=== PATIENT | male | born 1945 | race Caucasian/White ===

== ENCOUNTER 2021-12-28 21:47 | Inpatient (IN) | payer MEDICARE, OTHER ==
[~2021-12-28] VITALS: Ht 188 cm; Wt 108.4 kg
[~2021-12-28 21:47] MED LIST: ACETYL L-CARNI500 MG PO; AMBIEN10 MG PO; AMBIEN5 MG PO; ATENOLOL25 MG PO; B COMPLEX1 EACH PO; BENICAR20 MG PO; CALCIUM 500+D1 EACH PO; CO Q1060 MG; CYCLOBENZAPRINE5 MG PO; D3 DOTS2000 UNIT PO; DUEXIS 800-26.1 EACH PO; FERROUS SULFAT324 MG PO; FLAGYL250 MG PO; GABAPENTIN300 MG PO; GABAPENTIN600 MG PO; GLUCOSAMINE1000 MG PO; GRALISE1 EACH PO; GRALISE300 MG PO; GRALISE600 MG PO; MAGNESIUM27 MG; MERREM1 GM IV; MULTI-VITAMIN1 EACH PO; TENORMIN50 MG PO; ULTRAM 50MG50 MG PO
[2021-12-28] MEDS ORDERED: SODIUM CHLORIDE 0.9% 1000ML 1,000 ML IV ONE (22:00)
[2021-12-28] MEDS ORDERED: ACETAMINOPHEN 325 MG TAB PO ONE (22:00)
[2021-12-28 22:14] LABS: BASOPHILS # (AUTO) 0.1 (0.0-0.1); BASOPHILS % 0.5 % (0.0-1.0); EOSINOPHILS # (AUTO) 0.5 (0.0-0.4); HEMATOCRIT 45.3 % (38.2-49.6); HEMOGLOBIN 14.6 g/dL (14.0-18.0); LYMPHOCYTES # (AUTO) 1.9 (1.0-3.2); LYMPHOCYTES % 10.9 % (18.0-39.1); MEAN CORPUSCULAR HEMOGLOBIN 30.5 pg (28-32); MEAN CORPUSCULAR HGB CONC 32.2 g/dL (31-35); MEAN CORPUSCULAR VOLUME 94.8 fL (81-99); MONOCYTES # (AUTO) 1.2 (0.2-0.8); MONOCYTES % 7.2 % (4.4-11.3); NEUTROPHILS # (AUTO) 13.2 (2.1-6.9); NEUTROPHILS % 77.8 % (38.7-80.0); PLATELET COUNT 258 x10e3/uL (140-360); RED BLOOD COUNT 4.78 x10e6/uL (4.3-5.7); RED CELL DISTRIBUTION WIDTH 13.2 % (11.7-14.4)
[2021-12-28 22:27] LABS: ALANINE AMINOTRANSFERASE 18 IU/L (0-55); ALBUMIN 3.7 g/dL (3.5-5.0); ALKALINE PHOSPHATASE 72 IU/L (40-150); ANION GAP 16.8 mmol/L (8-16); BLOOD UREA NITROGEN 27 mg/dL (7-26); BUN/CREATININE RATIO 24 (6-25); CALCIUM 10.2 mg/dL (8.4-10.2); CARBON DIOXIDE 21 mmol/L (22-29); CHLORIDE 105 mmol/L (98-107); CREATINE KINASE 129 IU/L (30-200); CREATININE, SERUM 1.13 mg/dL (0.72-1.25); GLUCOSE 113 mg/dL (74-118); POTASSIUM 4.8 mmol/L (3.5-5.1); SODIUM 138 mmol/L (136-145)
[2021-12-28 23:10] LABS: CLARITY,URINE CLEAR (CLEAR); COLOR,URINE YELLOW (YELLOW); LEUKOCYTE ESTERASE ,URINE TRACE (NEGATIVE); NITRITE,URINE NEGATIVE (NEGATIVE); PROTEIN,URINE DIPSTICK NEGATIVE (NEGATIVE)
[2021-12-28 23:11] LABS: KETONES,URINE NEGATIVE (NEGATIVE); URINE UROBILINOGEN 0.2 mg/dL (0.2 - 1)
[2021-12-28] MEDS ORDERED: IBUPROFEN 600 MG TAB PO STA (23:24)
[2021-12-28 23:26] LABS: WBC,URINE (MAN) >50 /HPF (0-5)
[2021-12-28 23:27] LABS: BACTERIA,URINE MANY /HPF
[2021-12-28 23:28] LABS: EPITHELIAL CELLS,URINE FEW /LPF; MUCUS,URINE MODERATE (RARE)
[2021-12-28 23:30] LABS: HYALINE CASTS 0-1 (0-1)
[2021-12-28] MEDS ORDERED: ONDANSETRON HCL INJ 2MG/ML 2ML 2 MG/ML VIAL IV PRN (23:45)
[2021-12-28] MEDS ORDERED: ACETAMINOPHEN 325 MG TAB PO PRN (23:45)
[2021-12-29] VITALS (10 sets, daily range): BP systolic 107–155; BP diastolic 57–90
[2021-12-29] MEDS: SODIUM CHLORIDE 0.9% 1000ML 1,000 ML IV SCH ×4 (06:29→22:53)
[2021-12-29 07:44] LABS: CALCIUM 8.7 mg/dL (8.4-10.2); CREATININE, SERUM 0.91 mg/dL (0.72-1.25)
[2021-12-29 08:23] LABS: BASOPHILS # (AUTO) 0.1 (0.0-0.1); BASOPHILS % 0.4 % (0.0-1.0); EOSINOPHILS # (AUTO) 0.4 (0.0-0.4); EOSINOPHILS % 2.3 % (0.0-6.0); HEMOGLOBIN 13.7 g/dL (14.0-18.0); LYMPHOCYTES # (AUTO) 1.5 (1.0-3.2); MEAN CORPUSCULAR HEMOGLOBIN 31.3 pg (28-32); MEAN CORPUSCULAR HGB CONC 29.8 g/dL (31-35); MONOCYTES # (AUTO) 1.5 (0.2-0.8); MONOCYTES % 8.9 % (4.4-11.3); NEUTROPHILS # (AUTO) 13.1 (2.1-6.9); PLATELET COUNT 154 x10e3/uL (140-360); RED BLOOD COUNT 4.38 x10e6/uL (4.3-5.7); RED CELL DISTRIBUTION WIDTH 13.4 % (11.7-14.4)
[2021-12-29] MEDS ORDERED: POLYETHYLENE GLYCOL 3350 17 GM PACK PO PRN (15:15)
[2021-12-29] MEDS ORDERED: FAMOTIDINE PO PRN (15:15)
[2021-12-29] MEDS ORDERED: ZOLPIDEM TARTRATE 10 MG TAB PO PRN (15:15)
[2021-12-29] MEDS ORDERED: HYDRALAZINE HCL 20 MG/ML VIAL IV PRN (15:15)
[2021-12-29] MEDS ORDERED: IBUPROFEN PO PRN (15:15)
[2021-12-29] MEDS ORDERED: CENTRUM ADULTS1 EACH PO (15:38)
[2021-12-29] MEDS ORDERED: TEMAZEPAM 15 MG CAP PO PRN ×2 (15:45→21:00)
[2021-12-29] MEDS ORDERED: GRALISE300 MG PO ×2 (15:59)
[2021-12-29] MEDS ORDERED: JANUMET XR 1001 EACH PO (16:09)
[2021-12-29] MEDS ORDERED: MYRBETRIQ50 MG PO (16:10)
[2021-12-29] MEDS: FAMOTIDINE 20 MG TAB PO SCH (16:27)
[2021-12-29] MEDS: DOCUSATE SODIUM 100 MG CAP PO SCH (16:27)
[2021-12-29] MEDS ORDERED: ATENOLOL 50 MG TAB PO SCH (17:00)
[2021-12-29] MEDS: MELATONIN 3 MG TAB PO SCH (21:17)
[2021-12-30] VITALS (7 sets, daily range): BP systolic 122–149; BP diastolic 56–95
[2021-12-30 06:04] LABS: BASOPHILS # (AUTO) 0.1 (0.0-0.1); BASOPHILS % 0.5 % (0.0-1.0); EOSINOPHILS # (AUTO) 0.4 (0.0-0.4); HEMATOCRIT 41.7 % (38.2-49.6); HEMOGLOBIN 13.9 g/dL (14.0-18.0); LYMPHOCYTES # (AUTO) 2.4 (1.0-3.2); LYMPHOCYTES % 13.4 % (18.0-39.1); MEAN CORPUSCULAR HEMOGLOBIN 30.3 pg (28-32); MEAN CORPUSCULAR HGB CONC 33.3 g/dL (31-35); MONOCYTES # (AUTO) 1.6 (0.2-0.8); NEUTROPHILS # (AUTO) 13.1 (2.1-6.9); NEUTROPHILS % 74.1 % (38.7-80.0); PLATELET COUNT 214 x10e3/uL (140-360); RED BLOOD COUNT 4.58 x10e6/uL (4.3-5.7); RED CELL DISTRIBUTION WIDTH 13.2 % (11.7-14.4)
[2021-12-30 06:35] LABS: ALBUMIN/GLOBULIN RATIO 0.8 (0.8-2.0); ANION GAP 11.5 mmol/L (8-16); CALCIUM 8.8 mg/dL (8.4-10.2); CHOL/HDL RATIO 2.3 (3.9-4.7); CREATININE, SERUM 0.82 mg/dL (0.72-1.25); MAGNESIUM 1.9 MG/DL (1.3-2.1); PHOSPHORUS 1.9 MG/DL (2.3-4.7); POTASSIUM 3.5 mmol/L (3.5-5.1)
[2021-12-30 06:59] LABS: THYROID STIMULATING HORMONE 0.559 uIU/mL (0.350-4.940)
[2021-12-30] MEDS ORDERED: ASPIRIN 325 MG TAB PO SCH (09:00)
[2021-12-30] MEDS: GABAPENTIN 600 MG PO SCH (09:00)
[2021-12-30] MEDS ORDERED: OLMESARTAN 20 MG TAB PO SCH (09:00)
[2021-12-30] MEDS ORDERED: POTASSIUM PHOSPHATE 15 MM in SODIUM CHLORIDE 0.9% 250ML 250 ML IV ONE (09:30)
[2021-12-30] MEDS: SODIUM CHLORIDE 0.9% 1000ML 1,000 ML IV SCH ×2 (09:33→17:13)
[2021-12-30] MEDS: OLMESARTAN MEDOXOMIL 5 MG TABLET PO SCH (09:36)
[2021-12-30] MEDS: FAMOTIDINE 20 MG TAB PO SCH ×2 (09:37→17:13)
[2021-12-30] MEDS: METOPROLOL SUCCINATE 25 MG TAB XL PO SCH (09:37)
[2021-12-30] MEDS: DOCUSATE SODIUM 100 MG CAP PO SCH ×2 (09:37→17:00)
[2021-12-30] MEDS: TAMSULOSIN HCL 0.4 MG CAP PO SCH (09:37)
[2021-12-30] MEDS: DULOXETINE HCL 30 MG DELAYED RELEASE PO SCH (09:37)
[2021-12-30] MEDS: CHOLECALCIFEROL 1,000 UNIT TAB PO SCH (09:38)
[2021-12-30] MEDS: TOPIRAMATE 25 MG TAB PO SCH (09:38)
[2021-12-30] MEDS: ZINC SULFATE 50 MG CAP PO SCH (09:38)
[2021-12-30] MEDS ORDERED: ASPIRIN 81 MG CHEW TAB ONE (09:53)
[2021-12-30] MEDS ORDERED: ONDANSETRON HCL 4 MG ORAL DISINTEGRATING TAB PO PRN (11:45)
[2021-12-30] MEDS: MELATONIN 3 MG TAB PO SCH (20:58)
[2021-12-31] VITALS (7 sets, daily range): BP systolic 139–157; BP diastolic 73–85
[2021-12-31] MEDS: SODIUM CHLORIDE 0.9% 1000ML 1,000 ML IV SCH ×2 (03:21→15:38)
[2021-12-31 05:40] LABS: BASOPHILS # (AUTO) 0.1 (0.0-0.1); BASOPHILS % 0.6 % (0.0-1.0); EOSINOPHILS # (AUTO) 0.6 (0.0-0.4); EOSINOPHILS % 5.2 % (0.0-6.0); HEMATOCRIT 42.2 % (38.2-49.6); HEMOGLOBIN 13.6 g/dL (14.0-18.0); LYMPHOCYTES # (AUTO) 1.9 (1.0-3.2); LYMPHOCYTES % 17.2 % (18.0-39.1); MEAN CORPUSCULAR HEMOGLOBIN 29.8 pg (28-32); MEAN CORPUSCULAR HGB CONC 32.2 g/dL (31-35); MEAN CORPUSCULAR VOLUME 92.3 fL (81-99); MONOCYTES % 9.2 % (4.4-11.3); NEUTROPHILS # (AUTO) 7.3 (2.1-6.9); NEUTROPHILS % 67.1 % (38.7-80.0); PLATELET COUNT 226 x10e3/uL (140-360); RED BLOOD COUNT 4.57 x10e6/uL (4.3-5.7)
[2021-12-31 05:59] LABS: ANION GAP 9.1 mmol/L (8-16); CALCIUM 8.4 mg/dL (8.4-10.2); CREATININE, SERUM 0.78 mg/dL (0.72-1.25); PHOSPHORUS 2.5 MG/DL (2.3-4.7); POTASSIUM 4.1 mmol/L (3.5-5.1)
[2021-12-31] MEDS: DOCUSATE SODIUM 100 MG CAP PO SCH ×2 (09:00→17:00)
[2021-12-31] MEDS: OLMESARTAN MEDOXOMIL 5 MG TABLET PO SCH (09:01)
[2021-12-31] MEDS: METOPROLOL SUCCINATE 25 MG TAB XL PO SCH (09:01)
[2021-12-31] MEDS: TAMSULOSIN HCL 0.4 MG CAP PO SCH (09:01)
[2021-12-31] MEDS: ZINC SULFATE 50 MG CAP PO SCH (09:02)
[2021-12-31] MEDS: CHOLECALCIFEROL 1,000 UNIT TAB PO SCH (09:02)
[2021-12-31] MEDS: TOPIRAMATE 25 MG TAB PO SCH (09:03)
[2021-12-31] MEDS: DULOXETINE HCL 30 MG DELAYED RELEASE PO SCH (09:03)
[2021-12-31] MEDS: FAMOTIDINE 20 MG TAB PO SCH ×2 (09:13→17:35)
[2021-12-31] MEDS: GABAPENTIN 600 MG PO SCH (09:14)
[2021-12-31] MEDS: ASPIRIN 81 MG CHEW TAB PO SCH (10:42)
[2021-12-31] MEDS: MELATONIN 3 MG TAB PO SCH (21:00)
[2022-01-01] VITALS (7 sets, daily range): BP systolic 129–153; BP diastolic 74–93
[2022-01-01 05:44] LABS: BASOPHILS # (AUTO) 0.1 (0.0-0.1); BASOPHILS % 0.9 % (0.0-1.0); EOSINOPHILS # (AUTO) 0.7 (0.0-0.4); EOSINOPHILS % 8.5 % (0.0-6.0); HEMATOCRIT 44.3 % (38.2-49.6); HEMOGLOBIN 14.5 g/dL (14.0-18.0); LYMPHOCYTES # (AUTO) 1.7 (1.0-3.2); LYMPHOCYTES % 20.7 % (18.0-39.1); MEAN CORPUSCULAR HEMOGLOBIN 30.1 pg (28-32); MEAN CORPUSCULAR HGB CONC 32.7 g/dL (31-35); MEAN CORPUSCULAR VOLUME 91.9 fL (81-99); MONOCYTES % 11.8 % (4.4-11.3); NEUTROPHILS # (AUTO) 4.7 (2.1-6.9); NEUTROPHILS % 57.1 % (38.7-80.0); PLATELET COUNT 295 x10e3/uL (140-360); RED BLOOD COUNT 4.82 x10e6/uL (4.3-5.7); RED CELL DISTRIBUTION WIDTH 12.7 % (11.7-14.4)
[2022-01-01 06:23] LABS: ANION GAP 9.2 mmol/L (8-16); CALCIUM 8.8 mg/dL (8.4-10.2); CREATININE, SERUM 0.79 mg/dL (0.72-1.25); POTASSIUM 4.2 mmol/L (3.5-5.1)
[2022-01-01] MEDS: ZINC SULFATE 50 MG CAP PO SCH (08:57)
[2022-01-01] MEDS: OLMESARTAN MEDOXOMIL 5 MG TABLET PO SCH (08:57)
[2022-01-01] MEDS: TAMSULOSIN HCL 0.4 MG CAP PO SCH (08:57)
[2022-01-01] MEDS: FAMOTIDINE 20 MG TAB PO SCH ×2 (08:57→16:44)
[2022-01-01] MEDS: CHOLECALCIFEROL 1,000 UNIT TAB PO SCH (08:57)
[2022-01-01] MEDS: ASPIRIN 81 MG CHEW TAB PO SCH (08:57)
[2022-01-01] MEDS: DULOXETINE HCL 30 MG DELAYED RELEASE PO SCH (08:58)
[2022-01-01] MEDS: GABAPENTIN 600 MG PO SCH (08:58)
[2022-01-01] MEDS: TOPIRAMATE 25 MG TAB PO SCH (08:58)
[2022-01-01] MEDS: METOPROLOL SUCCINATE 25 MG TAB XL PO SCH (09:05)
[2022-01-01] MEDS: DOCUSATE SODIUM 100 MG CAP PO SCH ×2 (09:13→15:58)
[2022-01-01] MEDS: MELATONIN 3 MG TAB PO SCH (21:00)
[2022-01-02] VITALS: BP 147/63
[2022-01-02 04:00] VITALS: BP 145/90
[2022-01-02 06:24] LABS: ANION GAP 12.7 mmol/L (8-16); CALCIUM 8.8 mg/dL (8.4-10.2); CREATININE, SERUM 0.79 mg/dL (0.72-1.25); POTASSIUM 3.7 mmol/L (3.5-5.1)
[2022-01-02 07:51] VITALS: BP 165/101
[2022-01-02] MEDS: OLMESARTAN MEDOXOMIL 5 MG TABLET PO SCH (08:04)
[2022-01-02] MEDS: TOPIRAMATE 25 MG TAB PO SCH (08:05)
[2022-01-02] MEDS: DULOXETINE HCL 30 MG DELAYED RELEASE PO SCH (08:05)
[2022-01-02] MEDS: FAMOTIDINE 20 MG TAB PO SCH (08:05)
[2022-01-02] MEDS: TAMSULOSIN HCL 0.4 MG CAP PO SCH (08:05)
[2022-01-02] MEDS: ZINC SULFATE 50 MG CAP PO SCH (08:05)
[2022-01-02] MEDS: DOCUSATE SODIUM 100 MG CAP PO SCH (08:05)
[2022-01-02] MEDS: METOPROLOL SUCCINATE 25 MG TAB XL PO SCH (08:05)
[2022-01-02] MEDS: GABAPENTIN 600 MG PO SCH (08:06)
[2022-01-02] MEDS: CHOLECALCIFEROL 1,000 UNIT TAB PO SCH (08:06)
[2022-01-02] MEDS: ASPIRIN 81 MG CHEW TAB PO SCH (08:06)
[2022-01-02 10:08] VITALS: BP 165/101
[2022-01-02 12:01] VITALS: BP 159/89
[2022-01-02 15:43] VITALS: BP 143/84
== END 2022-01-02 16:28 | disposition home health service (06) | DRG 872 ==
LOC: ER 21:51 → INTOOBSV 23:38 → ERHOLD 23:38 → MED/SURG2 12-29 01:00 → OBSVTOIN 12-30 07:54
PROVIDERS: ADMIT Internal Medicine; ATTEND Internal Medicine
PROC: 3E03329 Introduction of Other Anti-infective into Peripheral Vein, Percutaneous Approach (ICD-10-PCS; 2021-12-28)
PROC: 02HV33Z Insertion of Infusion Device into Superior Vena Cava, Percutaneous Approach (ICD-10-PCS; principal; 2022-01-01)
DX: A41.51 Sepsis due to Escherichia coli [E. coli] (principal); N17.9 Acute kidney failure, unspecified; Z16.12 Extended spectrum beta lactamase (ESBL) resistance; N12 Tubulo-interstitial nephritis, not specified as acute or chronic; I10 Essential (primary) hypertension; R65.20 Severe sepsis without septic shock; M21.372 Foot drop, left foot; Z86.16 Personal history of COVID-19; Z91.81 History of falling; H91.90 Unspecified hearing loss, unspecified ear; Z95.0 Presence of cardiac pacemaker; Z74.09 Other reduced mobility; E11.42 Type 2 diabetes mellitus with diabetic polyneuropathy; Z79.899 Other long term (current) drug therapy; Z99.89 Dependence on other enabling machines and devices; E83.39 Other disorders of phosphorus metabolism; E87.6 Hypokalemia; Z20.822 Contact with and (suspected) exposure to COVID-19; Z79.4 Long term (current) use of insulin; Z96.642 Presence of left artificial hip joint
CPT/HCPCS: 36415; 36569; 71045; 80048; 80053; 80061; 81001; 82550; 82553; 82948; 83036; 83605; 83735; 84100; 84443; 84484; 85025; 87040; 87086; 87186; 93005; 94799; 96361; 99251; 99284; G0378; J0696; J2185; J7030; J7050

== ENCOUNTER 2022-04-26 08:53 | Emergency (ER) | payer MEDICARE ==
[~2022-04-26] VITALS: Ht 188 cm; Wt 114.4 kg
[~2022-04-26 08:53] MED LIST changes: +CENTRUM ADULTS1 EACH PO; +JANUMET XR 1001 EACH PO; +MYRBETRIQ50 MG PO
[2022-04-26] MEDS ORDERED: TRAMADOL HCL 50 MG TAB PO ONE (10:35)
[2022-04-26] MEDS ORDERED: ULTRAM 50MG50 MG PO (10:53)
== END 2022-04-26 10:54 | disposition home or self-care (01) ==
LOC: FSED 09:01
DX: M25.552 Pain in left hip (principal); M21.372 Foot drop, left foot; Z96.642 Presence of left artificial hip joint
CPT/HCPCS: 72170; 99283

== ENCOUNTER → 2023-06-28 | Outpatient (REF) | payer MEDICARE ==
[~2023-06-28] MED LIST changes: +AMLODIPINE BESYL5 MG PO; +ARICEPT5 MG PO; +ASPIRIN EC81 MG PO; +BACTRIM DS TAB1 EACH PO; +CENTRUM MEN'S1 EACH PO; +CLINDAMYCIN HC150 MG PO; +CRESTOR10 MG PO; +FLOMAX0.4 MG PO; +METOPROLOL SUCC25 MG PO; +OZEMPIC2 MG/0.75 SC; +VITAMIN D250 MCG PO; +ZINC50 M2 PO; +[UNRECOGNIZED DRUG - OTHER] PO
== END ==
LOC: RAD 11:40
PROVIDERS: ATTEND Nurse Practitioner Family
DX: Z01.810 Encounter for preprocedural cardiovascular examination (principal); E11.621 Type 2 diabetes mellitus with foot ulcer; M86.171 Other acute osteomyelitis, right ankle and foot; L97.518 Non-pressure chronic ulcer of other part of right foot with other specified severity
CPT/HCPCS: 71046; 83036; 84134; 93005; 93306